=== PATIENT | male | born 1960 | race Asian ===

== ENCOUNTER 2019-01-29 11:15 | Emergency (ER) | payer BC, OTHER ==
[~2019-01-29] VITALS: Ht 172.7 cm; Wt 86.2 kg
[~2019-01-29 11:15] MED LIST: METFORMIN HCL500 MG PO; PERCOCET 5-3251 EACH PO; ZOCOR 10 MG TAB10 MG PO
[2019-01-29 11:27] LABS: URINE BILIRUBIN NEGATIVE (Negative); URINE BLOOD 3+ (Negative); URINE CLARITY CLEAR; URINE GLUCOSE-RANDOM* NEGATIVE (Negative); URINE KETONES NEGATIVE (Negative); URINE LEUKOCYTES-REFLEX TRACE (Negative); URINE NITRITE-REFLEX NEGATIVE (Negative); URINE PROTEIN (DIPSTICK) 1+ (Negative); URINE SPECIFIC GRAVITY <= 1.005 (1.005-1.035); URINE UROBILINOGEN 0.2 E.U./dl (0.2-1.0)
[2019-01-29 11:28] LABS: URINE COLOR LT RED
[2019-01-29] MEDS ORDERED: JANUVIA25 MG PO (11:35)
[2019-01-29 11:36] LABS: CASTS None Seen /LPF (None Seen); SQUAMOUS 0-3 Few /LPF (0-3)
[2019-01-29] MEDS ORDERED: LIPITOR10 MG PO (11:36)
[2019-01-29] MEDS ORDERED: COZAAR 25 MG TA25 MG PO (11:36)
[2019-01-29] MEDS ORDERED: GLIPIZIDE 10 MG10 MG PO (11:36)
[2019-01-29 11:37] LABS: URINE WBC-REFLEX 0-5 Rare /HPF (0-5)
[2019-01-29 11:38] LABS: BACTERIA-REFLEX None Seen /HPF (None Seen); CRYSTALS None Seen /LPF (None Seen); URINE RBC >20 Many /HPF (0-2)
[2019-01-29 12:13] LABS: CALCIUM 9.5 mg/dL (8.5-10.1); POTASSIUM 4.1 mmol/L (3.5-5.1)
[2019-01-29] MEDS ORDERED: NORCO 5-325 TA1 EAC1 PO (12:46)
[2019-01-29] MEDS ORDERED: FLOMAX0.4 MG PO (12:46)
[2019-01-29 13:18] LABS: ABSOLUTE NEUTROPHILS 4.4 thou/uL (1.4-8.2); BASOPHILS 0.4 % (0.0-2.0); EOSINOPHILS 0.5 % (0.0-3.0); HEMATOCRIT 42.8 % (42.0-52.0); HEMOGLOBIN 13.8 gm/dL (14.0-18.0); LYMPHOCYTES 28.9 % (24.0-44.0); MCH 27.1 pg (26.0-34.0); MCHC 32.4 g/dL (28.0-37.0); MCV 83.6 fL (80.0-100.0); MONOCYTES 8.8 % (1.0-8.0); PLATELET COUNT 209 thou/uL (150-400); POLYS 61.4 % (36.0-66.0); RBC 5.11 mil/uL (4.50-6.00); RDW 13.8 % (10.5-14.5); WBC 7.1 thou/uL (4.0-11.0)
[2019-01-29] MEDS ORDERED: BACTRIM DS TAB1 EACH PO (13:37)
[2019-01-29 14:00] VITALS: BP 134/85
== END 2019-01-29 14:01 | disposition home or self-care (01) ==
LOC: ER 11:15
PROVIDERS: Physician Assistant
DX: N20.0 Calculus of kidney (principal); R31.9 Hematuria, unspecified; E11.9 Type 2 diabetes mellitus without complications; E78.00 Pure hypercholesterolemia, unspecified